=== PATIENT | female | born 1960 | race African-American/Black ===

== ENCOUNTER 2018-06-19 05:30 | Day surgery (SDC) ==
[2018-06-12 11:07] LABS: URINE SOURCE VOIDED
[2018-06-12 11:16] LABS: BILIRUBIN URINE NEGATIVE (NEGATIVE); BLOOD URINE NEGATIVE (NEGATIVE); COLOR YELLOW; GLUCOSE URINE NEGATIVE (NEGATIVE); KETONE URINE NEGATIVE (NEGATIVE); LEUKOCYTES URINE NEGATIVE (NEGATIVE); NITRITE URINE NEGATIVE (NEGATIVE); PROTEIN URINE NEGATIVE (NEGATIVE); SP GRAVITY URINE 1.005; TURBIDITY URINE CLEAR (CLEAR); UROBILINOGEN URINE NORMAL (NORMAL)
[2018-06-12 11:18] LABS: UR EPITHELIAL CELLS <10 /HPF (<10); URINE BACTERIA NEGATIVE /HPF; URINE RBC <10 /HPF (<10); URINE WBC <10 /HPF (<10)
--- NOTE | 2018-06-12 11:18 | Diag Imaging Result Doc PS360 ---
EXAM: CHEST-2 VIEWS HISTORY: PAT TECHNIQUE: Chest two views COMPARISON: 01/23/2018 FINDINGS: The lungs are well expanded. There is a left-sided portacatheter. No pneumothorax. The heart is not enlarged. The vessels are not distended. There are no infiltrates. No pleural effusions. IMPRESSION: No acute abnormality. Electronically signed by Emilio Duggan 06/12/2018 11:16 AM
[2018-06-12 11:27] LABS: AGAP 9; ALB/GLOB RATIO 1.2; ALBUMIN 4.2 g/dL (3.5-5.0); ALKALINE PHOSPHATASE 100 U/L (32-104); BUN 8 mg/dL (8-22); CALCIUM 9.6 mg/dL (8.8-10.2); CHLORIDE 100 mmol/L (98-107); COSMO 274; CREATININE 0.6 mg/dL (0.5-0.9); ESTIMATED GFR > 60; GLUCOSE 104 mg/dL (70-104); GOT 17 U/L (10-30); GPT 16 U/L (10-36); POTASSIUM 3.8 mmol/L (3.5-5.1); SODIUM 138 mmol/L (136-145); TCO2 29 mmol/L (25-35); TOTAL BILIRUBIN 0.24 mg/dL (0.20-1.00); TOTAL PROTEIN 7.7 g/dL (6.3-8.3)
[2018-06-12 11:30] LABS: BASO# 0.02 X1000 (0.0-0.2); BASO% 0.4 % (0.0-0.8); EOS# 0.21 X1000 (0.0-0.7); EOS% 4.3 % (0.0-10.0); HEMATOCRIT 38.5 % (37.0-47.0); IMM GRAN# 0.02 X1000 (0.0-0.04); IMM GRAN% 0.4 % (0.0-0.5); LYMPH# 1.42 X1000 (1.2-3.4); LYMPH% 29.3 % (20.5-51.1); MCH 31.2 PG (27-31); MCHC 31.2 g/dL (33-37); MONO% 14.5 % (1.7-9.3); MPV 8.8 FL (7.4-10.4); NEUT# 2.47 X1000 (1.4-6.5); NEUT% 51.1 % (42.2-75.2); PLT 255 X1000 (130-400); RBC 3.85 XMIL (4.2-5.4); RDW 14.9 % (11.5-14.5); WBC 4.84 X1000 (4.8-10.8)
--- NOTE | 2018-06-12 11:44 | EKG Report ---
Test Performed on : 06/12/2018 10:41:03 AM Test Reason : PAT Blood Pressure : / mmHG Vent. Rate : 080 BPM Atrial Rate : 080 BPM P-R Int : 162 ms QRS Dur : 074 ms QT Int : 368 ms P-R-T Axes : 045 045 045 degrees QTc Int : 424 ms Normal sinus rhythm. Normal ECG When compared with ECG of 19-JAN-2018 15:41, Nonspecific T wave abnormality no longer evident in Inferior leads Confirmed by Yuri Infante MD ([id number]) on 06/12/2018 3:29:41 PM
[2018-06-19] MEDS ORDERED: REGLAN ONE (06:16)
[2018-06-19] MEDS ORDERED: PEPCID ONE (06:16)
[2018-06-19] MEDS ORDERED: KEFZOL 1 GM/D5W 1 GM/50 ML IVPB ONE (06:16)
[2018-06-19] MEDS ORDERED: LR 1,000 ML ONE (06:16)
[2018-06-19 07:09] LABS: INR 0.88; PROTIME 12.7 Seconds (11.0-16.0)
[2018-06-19] MEDS ORDERED: DIPRIVAN 1% ONE (07:29)
[2018-06-19] MEDS ORDERED: XYLOCAINE-MPF 2% ONE (07:29)
--- NOTE | 2018-06-19 07:32 | Diag Imaging Result Doc PS360 ---
EXAM: LYMPHOSCINTIGRAPHY W/IMG 06/19/2018 HISTORY: r-sent node TECHNIQUE: Cystogram, 601 uCi of technetium 99m Lymphoseek. COMMENT: There is a small focus of uptake inferolateral and posterior to the injection site. IMPRESSION: Axillary sentinel node. Electronically signed by Damián Howe 06/19/2018 7:30 AM
[2018-06-19] MEDS ORDERED: DECADRON ONE (08:39)
[2018-06-19] MEDS ORDERED: ZOFRAN ONE (08:39)
[2018-06-19] MEDS ORDERED: OFIRMEV 1000 MG/ISOTONIC SOLN 1,000 MG/100 ML BOTTLE ONE (08:46)
[2018-06-19] MEDS ORDERED: DILAUDID ONE (08:54)
[2018-06-19] MEDS ORDERED: EPHEDRINE ONE (09:23)
[2018-06-19] MEDS ORDERED: D5 1/2 NS 1,000 ML ONE (10:55)
[2018-06-19] MEDS ORDERED: ZOFRAN IV PRN (11:24)
[2018-06-19] MEDS: NORCO-10 PO PRN ×2 (12:24→20:25)
[2018-06-19] MEDS: D5 1/2 NS 1,000 ML IV SCH (12:26)
[2018-06-19] MEDS ORDERED: VOLTAREN PO SCH (16:45)
--- NOTE | 2018-06-19 17:13 | OPERATIVE NOTE ---
PROCEDURE DATE: 06/19/2018 PREOP: Carcinoma right breast. Triple negative status post preoperative neoadjuvant chemotherapy. PROCEDURE: 1. Simple mastectomy left side. 2. Total mastectomy with sentinel nodes right side. DESCRIPTION OF PROCEDURE: The patient brought to the operating room. After satisfactory induction of IV and endotracheal anesthesia, both breast and axilla chest wall were prepped and draped in the appropriate manner. Areas were marked out and a simple mastectomy was performed on the left side with superior and inferior flaps being developed with dissection taken down to the fascia of the pectoralis major muscle. The breast was swept laterally. On reaching the axilla and the lateral border of the pectoralis the breast itself was amputated. Hemostasis was largely obtained by electrocautery or hemoclips. The wound was irrigated. There appeared to be no further bleeding or expanding hematoma. Two #10 Pavel-Toledo were threaded through the inferior flap, anchored with 0 silk and hooked to suction. Subcu was closed with 0 Vicryl, skin itself with 4-0 Vicryl subcuticular. Attention was then taken to the right breast. Again the symmetrical incision was marked out and inferior and [superior] flaps were elevated with dissection again taken down to the fascia of the pectoralis. On reaching the lateral border of the axilla the breast itself was amputated. At least 1 sentinel node was removed and sent for routine pathology. Again the wound was irrigated. There was no evidence of further bleeding or expanding hematoma. The fascia of the pectoralis was intact. The inferior flap was then incised and 2 #10 Pavel-Eldon were placed hooked to suction. Subcu was closed with 0 Vicryl and the skin itself with 4-0 Vicryl subcuticular. Sterile dressings were applied to both areas. The patient was awakened and extubated in the operating room and transferred to recovery. ESTIMATED BLOOD LOSS: About 200 mL total. cc: Phil Martinez MD [facility]
[2018-06-19] MEDS ORDERED: VOLTAREN PO PRN (18:08)
[2018-06-19] MEDS: PERIDEX MT SCH (21:09)
[2018-06-19] MEDS: ZOCOR PO SCH (21:09)
[2018-06-20] MEDS: D5 1/2 NS 1,000 ML IV SCH ×2 (00:47→19:13)
[2018-06-20] MEDS: NORCO-10 PO PRN ×2 (00:48→06:03)
[2018-06-20] MEDS: PRILOSEC PO SCH (06:03)
[2018-06-20] MEDS: PERIDEX MT SCH ×2 (09:45→21:41)
[2018-06-20] MEDS: HYDROCHLOROTHIAZIDE PO SCH (09:45)
[2018-06-20] MEDS: DITROPAN PO SCH (09:45)
[2018-06-20] MEDS: MORPHINE IV PRN ×3 (09:48→21:40)
[2018-06-20 10:06] LABS: BASO# 0.01 X1000 (0.0-0.2); BASO% 0.1 % (0.0-0.8); EOS# 0.08 X1000 (0.0-0.7); EOS% 0.7 % (0.0-10.0); HEMATOCRIT 30.6 % (37.0-47.0); HEMOGLOBIN 9.5 g/dL (12.0-16.0); IMM GRAN# 0.02 X1000 (0.0-0.04); IMM GRAN% 0.2 % (0.0-0.5); LYMPH# 1.44 X1000 (1.2-3.4); LYMPH% 12.8 % (20.5-51.1); MONO# 0.79 X1000 (0.11-0.59); MPV 9.2 FL (7.4-10.4); NEUT# 8.91 X1000 (1.4-6.5); NEUT% 79.2 % (42.2-75.2); PLT 230 X1000 (130-400); RBC 3.06 XMIL (4.2-5.4); RDW 14.9 % (11.5-14.5); WBC 11.25 X1000 (4.8-10.8)
[2018-06-20] MEDS ORDERED: D5 1/2 NS 1,000 ML IV SCH (19:15)
[2018-06-20] MEDS: ZOCOR PO SCH (21:41)
[2018-06-21] MEDS: NORCO-10 PO PRN ×2 (06:14→09:58)
[2018-06-21] MEDS: PRILOSEC PO SCH (06:14)
[2018-06-21] MEDS: PERIDEX MT SCH (09:33)
[2018-06-21] MEDS: DITROPAN PO SCH (09:33)
[2018-06-21] MEDS: HYDROCHLOROTHIAZIDE PO SCH (09:33)
[2018-06-21 11:03] VITALS: BP 112/72
== END 2018-06-21 12:50 | disposition home or self-care (01) ==
LOC: 4N 05:30 → OR 05:30
PROVIDERS: ATTEND Surgery
PROC: GE.MAST (2018-06-19 08:22)
CPT/HCPCS: 71020; 71046; 78195; 80053; 81001; 85025; 85610; 88305; 88307; 93005; 93010; 94761; 94799; A9270; A9520; J0131; J0690; J1100; J1170; J2270; J2405; J7120